=== PATIENT | male | born 1970 | race Caucasian/White ===

== ENCOUNTER 2021-02-22 11:11 | Emergency (ER) | payer OTHER, SELFPAY ==
[~2021-02-22] VITALS: Ht 175.3 cm; Wt 90.7 kg
[2021-02-22 11:22] VITALS: BP_SYST 123
--- NOTE | 2021-02-22 11:30 | NUR ---
Patient to TENT 2 to gown for evaluation. Side rails up.
--- NOTE | 2021-02-22 12:28 | NUR ---
ELIZABETH Fregoso at bedside examining patient.
--- NOTE | 2021-02-22 12:30 | NUR ---
RAPID COVID SWAB COLLECTED AND SENT TO THE LAB
[2021-02-22] MEDS ORDERED: KETOROLAC TROMETHAMINE 30 MG VIAL IVP ONE (12:45)
[2021-02-22] MEDS ORDERED: cefTRIAXone 1 GM IVPB PREMIX 50 ML IV ONE (12:45)
[2021-02-22] MEDS ORDERED: ALBUTEROL SULFATE 0.083% 2.5 MG/3 ML VIAL.NEB INH ONE (12:45)
[2021-02-22] MEDS ORDERED: methylPREDNISolone SOD SUCC/PF 62.5 MG/ML VIAL IVP ONE (12:45)
[2021-02-22] MEDS ORDERED: AZITHROMYCIN 250 MG TABLET PO ONE (12:45)
[2021-02-22] MEDS ORDERED: METOCLOPRAMIDE HCL 10 MG/2 ML VIAL IVP ONE (12:45)
[2021-02-22] MEDS ORDERED: NACL 0.9% 1,000 ML IV ONE (12:45)
--- NOTE | 2021-02-22 13:00 | NUR ---
# 22 gauge angiocath placed to LEFT HAND. Use of asceptic technique. Opsite placed over site. Blood return noted. Blood for lab drawn from site. Flushed with 10 cc of normal saline. No evidence of infiltration noted. Patient tolerated well.
--- NOTE | 2021-02-22 13:15 | NUR ---
MEDICATED THE PT PER MD ORDER. WILL REASSESS
[2021-02-22 13:19] LABS: CALCIUM 8.9 mg/dL (8.4-11.0); CREATININE 1.19 mg/dL (0.55-1.30)
[2021-02-22 13:21] LABS: BASOPHILS % (AUTO) 0.6 % (0.0-2.0); EOSINOPHILS # (AUTO) 0.1 K/uL (0.0-0.4); EOSINOPHILS % (AUTO) 1.8 % (0.0-4.0); HEMATOCRIT 45.1 % (36-54); HEMOGLOBIN 15.1 g/dL (14.0-18.0); LYMPHOCYTES # (AUTO) 1.6 K/uL (1.0-5.5); LYMPHOCYTES % (AUTO) 29.5 % (20.5-51.5); MEAN CORPUSCULAR HEMOGLOBIN 31 pg (27-31); MEAN CORPUSCULAR HGB CONC 34 % (32-36); MEAN CORPUSCULAR VOLUME 93 fL (79.0-98.0); MONOCYTES # (AUTO) 0.7 K/uL (0.0-1.0); MONOCYTES % (AUTO) 12.5 % (1.7-9.3); NEUTROPHILS % (AUTO) 55.6 % (40.0-70.0); PLATELET COUNT (AUTO) 232 K/uL (130-430); RED BLOOD CELL COUNT(AUTO) 4.86 MIL/uL (4.2-6.2); RED CELL DISTRIBUTION WIDTH 13.9 % (9.0-15.0); WHITE BLOOD COUNT (AUTO) 5.4 K/uL (4.8-10.8)
[2021-02-22 13:25] LABS: ALBUMIN 3.7 g/dL (3.4-4.8)
[2021-02-22 13:39] LABS: TOTAL BILIRUBIN 0.2 mg/dL (0.0-1.0)
[2021-02-22] MEDS ORDERED: MORPHINE 4 MG INJ. 4 MG/ML VIAL IVP ONE (14:15)
[2021-02-22] MEDS ORDERED: PRED20TA PO (14:48)
[2021-02-22] MEDS ORDERED: ALBMDI INH (14:48)
[2021-02-22 15:13] VITALS: BP_SYST 123
--- NOTE | 2021-02-22 15:15 | NUR ---
Patient given written and verbal discharge instructions and verbalizes understanding. ER MD discussed with patient the results and treatment provided. Patient in stable condition. ID arm band removed. IV catheter removed intact and dressing applied, no active bleeding. Rx of albuterol and prednisone given. Patient educated on pain management and to follow up with PMD. Pain Scale 3/10. Opportunity for questions provided and answered. Medication side effect fact sheet provided.
[2021-02-23] MEDS ORDERED: AZIT-62 PO (20:40)
== END 2021-02-22 15:13 | disposition home or self-care (01) ==
LOC: SED 11:11
DX: U07.1 COVID-19 (principal); J20.8 Acute bronchitis due to other specified organisms; A41.9 Sepsis, unspecified organism; E86.0 Dehydration; M54.5 Low back pain; Z88.0 Allergy status to penicillin; Z79.899 Other long term (current) drug therapy
CPT/HCPCS: 36415; 71045; 80053; 83605; 85025; 87040; 87426; 94640; 96374; 96375; 99285; J1885; J2270; J2765; J2930; J7613; Q0144